=== PATIENT | female | born 1960 | race Caucasian/White ===

== ENCOUNTER → 2019-07-24 | Outpatient (CLI) | payer BC ==
[~2019-07-24] MED LIST: ABX; CEPH500 PO; DIPH50 PO; DOXY100 PO; HYDMOR4 PO; LEVOXYL; LEVSOD137 PO; LEVSOD150 PO; OXYACE5T PO; OXYC5 PO; PROM25 PO; RANI150 PO; RIFA300 PO; RXOXYACE PO; VANCOMYCIN
[2019-07-24 19:09] LABS: Free Thyroxine 1.01 ng/dL (0.70-1.60)
[2019-07-24 19:18] LABS: Anion Gap 4 mmol/L (6-16); Blood Urea Nitrogen 16 mg/dL (8-24); Bun/Creatinine Ratio 16.5 (12.0-20.0); CO2, Blood 28 mmol/L (21-32); Calcium, Blood 9.3 mg/dL (8.5-10.1); Chloride, Blood 107 mmol/L (98-108); Creatinine, Blood 0.97 mg/dL (0.40-1.00); Glomerular Filtration Rate >60 (60-); Glucose, Blood 88 mg/dL (70-99); Potassium, Blood 4.5 mmol/L (3.5-5.5); Sodium, Blood 139 mmol/L (136-145)
== END | disposition home or self-care (01) ==
LOC: LAB SHORT 15:36 → LAB 15:36
PROVIDERS: Hospitalist
DX: I10 Essential (primary) hypertension (principal)
CPT/HCPCS: 80048; 84439; 84443

== ENCOUNTER → 2021-10-18 | Outpatient (CLI) | payer BC ==
[2021-10-19 15:11] LABS: HPV 16 Negative (Negative); HPV 18 Negative (Negative); HPV OTHER HR TYPES Negative (Negative)
== END | disposition home or self-care (01) ==
LOC: LAB 11:25 → LAB SHORT 11:25
PROVIDERS: Family Medicine
DX: Z01.419 Encounter for gynecological examination (general) (routine) without abnormal findings (principal)
CPT/HCPCS: 87624; G0123